=== PATIENT | male | born 1955 | race Caucasian/White ===

== ENCOUNTER 2023-10-21 03:03 | Observation (INO) | payer OTHER ==
[2023-10-21 03:39] LABS: Absolute Eosinophils 0.2 K/uL (0-0.5); Absolute Monocytes 0.7 K/uL (0.1-1.3); Absolute Neutrophil 5.3 K/uL (1.8-8.0); Basophils % 0.6 % (0-1.3); Eosinophils % 2.3 % (0-4.4); Hematocrit 44.3 % (39.6-49.0); Lymphocytes % 24.6 % (15.3-44.8); MCHC 33.8 g/dL (32.0-36.0); MCV 91.9 fL (80-100); MPV 9.2 fL (7.6-11.3); Monocytes % 8.5 % (3.3-12.3); Nucleated Red Blood Cells % 0.1 % (0-0); Platelets 208 thou/uL (152-406); RBC Red Blood Cell Count 4.82 M/uL (4.33-5.43)
[2023-10-21 03:45] LABS: PTT, Activated Partial Thromb 27.4 SECONDS (24.3-36.9); Protime INR 1.09
[2023-10-21 03:55] LABS: Albumin 3.5 g/dL (3.4-5.0); Anion Gap 9.1 mEq/L (5.0-15.0); Bilirubin Direct 0.2 mg/dL (0-0.2); Bilirubin Indirect, Calculated 0.5 mg/dL (0.2-0.8); Bilirubin Total 0.7 mg/dL (0.2-1.0); Globulin 3.4 g/dL (2.3-3.5); Magnesium 2.3 mg/dL (1.6-2.4); Potassium 4.1 mEq/L (3.5-5.1); Protein, Total 6.9 g/dL (6.4-8.2); Troponin High Sensitivity 12.7 pg/mL (<58.9)
[2023-10-21] MEDS ORDERED: NA CHLORIDE 0.9% 1,000 ML ONE ×2 (04:00→16:18)
[2023-10-21] MEDS ORDERED: ALBUMIN HUMAN 25% 100 ML IV ONE (04:53)
--- NOTE | 2023-10-21 06:53 | EDPHYS ---
Physician Documentation [facility] Name: Joseph Mak Age: 67 yrs Sex: Male : 1955 Arrival Date: 10/21/2023 Time: 03:03 Bed 13 Private MD: ED Physician Oneal Ambrose HPI: 10/20 05:58 This 67 yrs old Male presents to ER via Wheelchair with complaints of Syncope.sp4 06:52 Six 7-year-old male with past medical history of TN and 5 stents presents with acute sp4 syncopal episode. Hospital. Patient was visiting his mother and has apparently passed out while visiting his mother. Patient has generalized weakness.. Historical: - Allergies: 03:28 No Known Allergies; ss - PMHx: 03:28 Myocardial infarction; ss - PSHx: 03:28 cardiac stents x5; ss - Immunization history:: Client reports receiving the 2nd dose of the Covid vaccine. - Infectious Disease History:: Denies. - Social history:: Smoking status: Patient denies any tobacco usage or history of. - Family history:: not pertinent. ROS: 06:52 Constitutional: Negative for fever, chills, and weight loss, positive syncopal episode sp4 and generalized weakness 06:52 All other systems are negative, Exam: 05:57 ECG was reviewed by the Attending Physician. EKG time 0306, electronic ventricular sp4 pacemaker, rate 62, left axis deviation An electrocardiogram was deferred on this patient 06:52 Abdomen/GI: Exam negative for acute changes, sp4 06:52 Constitutional: This is a well developed, well nourished patient who is awake, alert, and in no acute distress. Pale appearing but nontoxic Head/Face: Normocephalic, atraumatic. Eyes: Pupils equal round and reactive to light, extra-ocular motions intact. Lids and lashes normal. Conjunctiva and sclera are not injected. Cornea within normal limits. Periorbital areas with no swelling, redness, or edema. ENT: Nares patent. No nasal discharge, no septal abnormalities noted. Tympanic membranes are normal and external auditory canals are clear. Oropharynx with no redness, swelling, or masses, exudates, or evidence of obstruction, uvula midline. Mucous membranes moist. Neck: Trachea midline, no thyromegaly or masses palpated, and no cervical lymphadenopathy. Supple, full range of motion without nuchal rigidity, or vertebral point tenderness. Chest/axilla: Normal chest wall appearance and motion. Nontender with no deformity. No lesions are appreciated. Cardiovascular: Regular rate and rhythm with a normal S1 and S2. No gallops, murmurs, or rubs. Normal PMI, no JVD. No pulse deficits. Respiratory: Lungs have equal breath sounds bilaterally, clear to auscultation and percussion. No rales, rhonchi or wheezes noted. No increased work of breathing, no retractions or nasal flaring. Abdomen/GI: Soft, with normal bowel sounds. No distension or tympany. No guarding or rebound. No evidence of tenderness throughout. Back: No spinal tenderness. No costovertebral tenderness. Skin: Warm, dry with normal turgor. Normal color with no rashes, no lesions, and no evidence of cellulitis. MS/ Extremity: Pulses equal, no cyanosis. Neurovascular intact. Full, normal range of motion. Neuro: Awake and alert, GCS 15, oriented to person, place, time, and situation. Cranial nerves II-XII grossly intact. Motor strength 5/5 in all extremities. Sensory grossly intact. Psych: Awake, alert, with orientation to person, place and time. Behavior, mood, and affect are within normal limits Vital Signs: 03:10 BP 77 / 53; Pulse 60; Resp 16; Temp 97.6(O); Pulse Ox 98% on R/A; Weight 77.11 kg; ss Height 5 ft. 5 in. ; Pain 0/10; 03:29 BP 101 / 67; ss 04:15 BP 100 / 61; Pulse 60; Resp 16; Pulse Ox 96% ; pc2 05:00 BP 111 / 71; Pulse 61; Resp 16; Pulse Ox 100% on R/A; pc2 06:41 BP 111 / 69; Pulse 71; Resp 16; Pulse Ox 98% on R/A; pc2 06:59 BP 102 / 57 Supine; Pulse 70 LA; pc2 07:00 BP 102 / 61 Sitting; Pulse 72 LA; pc2 07:00 BP 89 / 69 Standing; Pulse 78 LA; pc2 08:05 BP 108 / 74; Pulse 75; Resp 17; Pulse Ox 99% on R/A; rs5 03:10 Body Mass Index 28.29 (77.11 kg, 165.1 cm) ss 03:10 Pain Scale: Adult ss NIH Stroke Scale Scores: 06:52 NIHSS Score: 0 sp4 Mine Coma Score: 06:52 Eye Response: spontaneous(4). Motor Response: obeys commands(6). Verbal Response: sp4 oriented(5). Total: 15. MDM: 03:30 Patient medically screened. sp4 06:54 Differential Diagnosis: cardiac arrhythmia, drug effect, emotional response, idiopathic sp4 syncope, seizure. Data reviewed: vital signs, nurses notes, lab test result(s), EKG, radiologic studies, CT scan, plain films. Consideration of Admission/Observation Escalation of care including admission/observation considered. Management of patient was discussed with the following: Hospitalist: Admit team . 07:26 ED course: CT - EXAM DESCRIPTION: CT head without contrast. CLINICAL HISTORY: SYNCOPE . sp4 COMPARISON: None Available. TECHNIQUE: Contiguous axial sections are obtained as per protocol. Sagittal and coronal reformations are submitted Automatic exposure control (AEC), mA and/or kV adjustment by patient size, and/or iterative reconstructive technique was used, per departmental dose optimization program, during the performance of the CT examination. FINDINGS: Ventricles, sulci and cisterns appear normal. Normal ingram-white matter differentiation is noted. No evidence of intra or extra-axial hemorrhage, hematoma, mass, mass effect or midline shift is noted. The posterior fossa structures appear normal. The bony calvarium appears intact. The soft tissues of the scalp appear unremarkable. Normal appearance of the orbits are noted. The paranasal sinuses and mastoids appear normal. IMPRESSION: Unremarkable non contrast enhanced CT examination of brain. If clinically ischemic CVA is suspected, MRI brain with diffusion-weighted images should be considered.. ED course: : 1955. Technique: Portable AP semierect chest x-ray. Comparison: None. Clinical history: syncope. Heart size: Normal. No vascular congestion. Left transvenous pacemaker. Lungs: No acute consolidation. Pleura: No pleural effusion. No pneumothorax. Mediastinum and akshat: Unremarkable. Musculoskeletal: Unremarkable. Support tubings: None. Impression: 1. No active disease in the chest.. 10/20 03:28 Order name: Basic Metabolic Panel; Complete Time: 06:49 sp4 10/20 03:28 Order name: CBC with Diff; Complete Time: 06:49 sp4 10/20 03:28 Order name: Hepatic Function; Complete Time: 06:49 sp4 10/20 03:28 Order name: Magnesium; Complete Time: 06:49 sp4 10/20 03:28 Order name: Protime (+inr); Complete Time: 06:49 sp4 10/20 03:28 Order name: Ptt, Activated; Complete Time: 06:49 sp4 10/20 03:28 Order name: Troponin High Sensitivity; Complete Time: 06:49 sp4 10/20 03:28 Order name: Urinalysis w/ reflexes sp4 10/20 03:29 Order name: BNP; Complete Time: 06:49 sp4 10/20 03:29 Order name: Lactate w/ 2H reflex if indic.; Complete Time: 06:49 sp4 10/20 03:30 Order name: Blood Culture Adult (2) sp4 10/20 03:31 Order name: Type And Screen sp4 10/20 07:32 Order name: Troponin High Sensitivity EDMS 10/20 07:32 Order name: Troponin High Sensitivity EDMS 10/20 07:32 Order name: Troponin High Sensitivity EDMS 10/20 09:36 Order name: ABO/RH no charge EDMS 10/20 16:39 Order name: T4 Free EDMS 10/20 16:39 Order name: Thyroid Stimulating Hormone EDMS 10/20 03:28 Order name: CT Head Brain wo Cont sp4 10/20 03:28 Order name: Chest Single View XRAY sp4 10/20 07:32 Order name: Echo with Doppler EDMS 10/20 03:28 Order name: EKG; Complete Time: 03:29 sp4 10/20 03:28 Order name: Cardiac monitoring; Complete Time: 03:42 sp4 10/20 03:28 Order name: EKG - Nurse/Tech; Complete Time: 03:42 sp4 10/20 03:28 Order name: IV Saline Lock; Complete Time: 03:42 sp4 10/20 03:28 Order name: Labs collected and sent; Complete Time: 03:42 sp4 10/20 03:28 Order name: NPO; Complete Time: 03:42 sp4 10/20 03:28 Order name: O2 Per Protocol; Complete Time: 03:42 sp4 10/20 03:28 Order name: O2 Sat Monitoring; Complete Time: 03:42 sp4 10/20 03:28 Order name: Orthostatics; Complete Time: 06:58 sp4 10/20 04:23 Order name: Misc. Order: Recollect\T\ReBand - TS Hemolyzed; Complete Time: 04:46 ty EC:57 Rate is 62 beats/min. Rhythm is regular, Paced. Interpreted by me. Reviewed by me. sp4 Administered Medications: 04:07 Drug: NS 0.9% IV 1000 ml IV at 1 bolus Per protocol; 1000 mL bolus Route: IV; Rate: 1 ss bolus; Site: right wrist; 05:30 Follow up: Response: No adverse reaction; IV Status: Completed infusion; IV Intake: pc2 1000ml 04:55 Drug: Albumin IVPB 25 grams 100 ml IVPB once; (Note: Albumin 25% concentration) Volume: pc2 100 ml; Route: IVPB; Site: right wrist; 05:30 Follow up: Response: No adverse reaction pc2 05:55 Follow up: IV Status: Completed infusion; IV Intake: 100ml pc2 Point of Care Testing: Blood Glucose: 03:58 Blood Glucose: 138 mg/dL; pc2 Ranges: Critical Glucose Levels:Adult <50 mg/dl or >400 mg/dl <40 mg/dl or >180 mg/dl Disposition Summary: 10/21/23 06:52 Hospitalization Ordered Notes: Hospitalization Status: Inpatient Admission sp4 Provider: Daniel Love sp4 Condition: Stable sp4 Problem: new sp4 Symptoms: have improved sp4 Bed/Room Type: Standard sp4 Location: Telemetry/MedSurg (Inpatient)(10/21/23 20:23) Room Assignment: 222(10/21/23 20:23) Diagnosis - Syncope and collapse, hypotensive episode sp4 Forms: - Medication Reconciliation Form sp4 - SBAR form sp4 - Leadership Thank You Letter sp4 NIH Stroke Scale - NIH Stroke Score Date: 10/21/2023 Time: 06:52 Total Score = 0 10. Dysarthria (speech clarity - read or repeat words) - 0(Normal) 11. Extinction and Inattention (visual/tactile/auditory/spatial/personal) - 0(No abnormality) 1a. Level of Consciousness (LOC) - 0(Alert) 1b. Level of Consciousness (LOC) (Month \T\ Age) - 0(Both) 1c. LOC Commands (Open \T\ Closes Eyes/Hot Mix Operator) - 0(Both) 2. Best Gaze (Lateral Gaze Paresis) - 0(Normal) 3. Visual Field Loss - 0(No visual loss) 4. Facial Palsy - 0(Normal) 5a. Left Arm: Motor (10-second hold) - 0(No drift) 5b. Right Arm: Motor (10-second hold) - 0(No drift) 6a. Left Leg: Motor (5-second hold - always test supine) - 0(No drift) 6b. Right Leg: Motor (5-second hold - always test supine) - 0(No drift) 7. Limb Ataxia (finger/nose \T\ heel/brody - test with eyes open) - 0(Absent) 8. Sensory Loss (pinprick arms/legs/face) - 0(Normal) 9. Best Language: Aphasia (description/naming/reading) - 0(No aphasia) Initials: sp4 Signatures: Dispatcher [employer] EDMS Radha Bay Kimberly, RN RN Yanni Nova RN RN Oneal He MD MD sp4 Evan Hedrick Pam, RN RN pc2 Corrections: (The following items were deleted from the chart) 03:30 03:29 BASIC METABOLIC PANEL+C.LAB.BRZ ordered. EDMS EDMS 03:30 03:29 CBC+H.LAB.BRZ ordered. EDMS EDMS 03:30 03:29 HEPATIC FUNCTION+C.LAB.BRZ ordered. EDMS EDMS 03:30 03:29 MAGNESIUM+C.LAB.BRZ ordered. EDMS EDMS 03:30 03:29 PROTIME (+INR)+COAG.LAB.BRZ ordered. EDMS EDMS 03:30 03:29 PTT, ACTIVATED+COAG.LAB.BRZ ordered. EDMS EDMS 03:30 03:29 Troponin High Sensitivity+C.LAB.BRZ ordered. EDMS EDMS 03:30 03:29 Urinalysis+U.LAB.BRZ ordered. EDMS EDMS 08:45 06:52 Telemetry/MedSurg (observation) sp4 bd 08:45 06:52 sp4 bd 20:23 08:45 [facility] ER HOLD bd kl 20:23 08:45 ERHOLD- bd kl
--- NOTE | 2023-10-21 06:53 | ER ---
Nurse's Notes [facility] Name: Joseph Mak Age: 67 yrs Sex: Male : 1955 Arrival Date: 10/21/2023 Time: 03:03 Bed 13 Private MD: Diagnosis: Syncope and collapse, hypotensive episode Presentation: 10/20 03:10 Chief complaint: Patient states: syncopal episode while visiting family member. Denies ss feeling ill. Reports feeling fatigued suddenly. Coronavirus screen: Client denies travel out of the [place] in the last 14 days. Ebola Screen: Patient denies exposure to infectious person. Patient denies travel to an Ebola-affected area in the 21 days before illness onset. Initial Sepsis Screen: Does the patient meet any 2 criteria? No. Patient's initial sepsis screen is negative. Does the patient have a suspected source of infection? No. Patient's initial sepsis screen is negative. Risk Assessment: Do you want to hurt yourself or someone else? Patient reports no desire to harm self or others. Onset of symptoms was October 21, 2023. 03:10 Method Of Arrival: Wheelchair ss 03:10 Acuity: TISH 2 ss Triage Assessment: 03:10 General: Appears in no apparent distress. Behavior is calm, cooperative, quiet. Pain: ss Denies pain. EENT: Oral mucosa is moist. Neuro: Level of Consciousness is awake, obeys commands, Speech is normal. Respiratory: Airway is patent Respiratory effort is even, unlabored, Respiratory pattern is regular, symmetrical. GI: Abdomen is non-distended, Patient currently denies abdominal pain, diarrhea, nausea, vomiting. : No signs and/or symptoms were reported regarding the genitourinary system. Derm: Skin is pale, Skin temperature is cool. Historical: - Allergies: 03:28 No Known Allergies; ss - PMHx: 03:28 Myocardial infarction; ss - PSHx: 03:28 cardiac stents x5; ss - Immunization history:: Client reports receiving the 2nd dose of the Covid vaccine. - Infectious Disease History:: Denies. - Social history:: Smoking status: Patient denies any tobacco usage or history of. - Family history:: not pertinent. Screenin:[facility] ED Fall Risk Assessment (Adult) History of falling in the last 3 months, pc2 including since admission No falls in past 3 months (0 pts) Confusion or Disorientation No (0 pts) Intoxicated or Sedated No (0 pts) Impaired Gait No (0 pts) Mobility Assist Device Used No (0 pt) Altered Elimination Score/Fall Risk Level 0 - 2 = Low Risk Oriented to surroundings, Hourly rounding (assess needs \T\ fall precautionary measures) done. Abuse screen: Denies threats or abuse. Denies injuries from another. Nutritional screening: No deficits noted. Tuberculosis screening: No symptoms or risk factors identified. Assessment: 03:55 General: Appears in no apparent distress. comfortable, Behavior is calm, cooperative, pc2 appropriate for age. Pain: Denies pain. Neuro: Level of Consciousness is awake, alert, obeys commands, Oriented to person, place, time, situation, Appropriate for age Speech is normal, Facial symmetry appears normal, Reports a syncopal episode. Cardiovascular: Capillary refill < 3 seconds Patient's skin is warm and dry. Rhythm is ventricular pacer. Respiratory: Airway is patent Trachea midline Respiratory effort is even, unlabored, Respiratory pattern is regular, symmetrical, Breath sounds are clear bilaterally. GI: No signs and/or symptoms were reported involving the gastrointestinal system. : No signs and/or symptoms were reported regarding the genitourinary system. EENT: No signs and/or symptoms were reported regarding the EENT system. Musculoskeletal: No signs and/or symptoms reported regarding the musculoskeletal system. 04:14 Reassessment: Pt to CT now VIA stretcher. ss 05:32 Reassessment: Patient and/or family updated on plan of care and expected duration. Pain pc2 level reassessed. Patient is alert, oriented x 3, equal unlabored respirations, skin warm/dry/pink. 06:45 Reassessment: Patient and/or family updated on plan of care and expected duration. Pain pc2 level reassessed. Orthostatics completed. Patient denies pain at this time. Patient states feeling better. 07:01 Reassessment: Patient and/or family updated on plan of care and expected duration. Pain rs5 level reassessed. Patient is alert, oriented x 3, equal unlabored respirations, skin warm/dry/pink. Neuro: Denies weakness dizziness. 07:01 Pain: Denies pain. rs5 08:05 Reassessment: No changes from previously documented assessment. rs5 Vital Signs: 03:10 BP 77 / 53; Pulse 60; Resp 16; Temp 97.6(O); Pulse Ox 98% on R/A; Weight 77.11 kg; ss Height 5 ft. 5 in. ; Pain 0/10; 03:29 BP 101 / 67; ss 04:15 BP 100 / 61; Pulse 60; Resp 16; Pulse Ox 96% ; pc2 05:00 BP 111 / 71; Pulse 61; Resp 16; Pulse Ox 100% on R/A; pc2 06:41 BP 111 / 69; Pulse 71; Resp 16; Pulse Ox 98% on R/A; pc2 06:59 BP 102 / 57 Supine; Pulse 70 LA; pc2 07:00 BP 102 / 61 Sitting; Pulse 72 LA; pc2 07:00 BP 89 / 69 Standing; Pulse 78 LA; pc2 08:05 BP 108 / 74; Pulse 75; Resp 17; Pulse Ox 99% on R/A; rs5 03:10 Body Mass Index 28.29 (77.11 kg, 165.1 cm) ss 03:10 Pain Scale: Adult ss Rangely Coma Score: 06:52 Eye Response: spontaneous(4). Motor Response: obeys commands(6). Verbal Response: sp4 oriented(5). Total: 15. NIH Stroke Scale Scores: 06:52 NIHSS Score: 0 sp4 ED Course: 03:19 Patient arrived in ED. kl 03:21 Inserted saline lock: 22 gauge in right wrist, using aseptic technique. Blood collected.ss 03:28 Oneal Ambrose MD is Attending Physician. sp4 03:28 Triage completed. ss 03:28 Arm band placed on right wrist. ss 03:35 Client placed on continuous cardiac and pulse oximetry monitoring. NIBP monitoring pc2 applied. patient monitor on. Pulse ox on. NIBP on. 04:00 Type And Screen Sent. ss 04:00 Blood Culture Adult (2) Sent. ss 04:00 Lactate w/ 2H reflex if indic. Sent. ss 04:01 Chest Single View XRAY In Process Unspecified. EDMS 04:15 CT Head Brain wo Cont In Process Unspecified. EDMS 04:45 Mariel yanez, RN is Primary Nurse. pc2 04:55 Patient has correct armband on for positive identification. Bed in low position. Call pc2 light in reach. Side rails up X2. Provided Education on: POC and timeframe. 06:52 Love, Daniel, MD is Hospitalizing Provider. sp4 08:00 No provider procedures requiring assistance completed. rs5 08:00 Patient admitted, IV remains in place. rs5 08:22 Prince Dumont, JESSY is Primary Nurse. rs5 Administered Medications: 04:07 Drug: NS 0.9% IV 1000 ml IV at 1 bolus Per protocol; 1000 mL bolus Route: IV; Rate: 1 ss bolus; Site: right wrist; 05:30 Follow up: Response: No adverse reaction; IV Status: Completed infusion; IV Intake: pc2 1000ml 04:55 Drug: Albumin IVPB 25 grams 100 ml IVPB once; (Note: Albumin 25% concentration) Volume: pc2 100 ml; Route: IVPB; Site: right wrist; 05:30 Follow up: Response: No adverse reaction pc2 05:55 Follow up: IV Status: Completed infusion; IV Intake: 100ml pc2 Medication: 04:54 VIS not applicable for this client. pc2 Point of Care Testing: Blood Glucose: 03:58 Blood Glucose: 138 mg/dL; pc2 Ranges: Intake: 05:30 IV: 1000ml; Total: 1000ml. pc2 05:55 IV: 100ml; Total: 1100ml. pc2 Outcome: 06:52 Decision to Hospitalize by Provider. sp4 08:00 Admitted to ER Hold. [facility] rs5 08:00 Condition: stable 08:00 Instructed on the need for admit, Demonstrated understanding of instructions, 22:34 Patient left the ED. pc2 NIH Stroke Scale - NIH Stroke Score Date: 10/21/2023 Time: 06:52 Total Score = 0 10. Dysarthria (speech clarity - read or repeat words) - 0(Normal) 11. Extinction and Inattention (visual/tactile/auditory/spatial/personal) - 0(No abnormality) 1a. Level of Consciousness (LOC) - 0(Alert) 1b. Level of Consciousness (LOC) (Month \T\ Age) - 0(Both) 1c. LOC Commands (Open \T\ Closes Eyes/Net Programmer Analyst) - 0(Both) 2. Best Gaze (Lateral Gaze Paresis) - 0(Normal) 3. Visual Field Loss - 0(No visual loss) 4. Facial Palsy - 0(Normal) 5a. Left Arm: Motor (10-second hold) - 0(No drift) 5b. Right Arm: Motor (10-second hold) - 0(No drift) 6a. Left Leg: Motor (5-second hold - always test supine) - 0(No drift) 6b. Right Leg: Motor (5-second hold - always test supine) - 0(No drift) 7. Limb Ataxia (finger/nose \T\ heel/brody - test with eyes open) - 0(Absent) 8. Sensory Loss (pinprick arms/legs/face) - 0(Normal) 9. Best Language: Aphasia (description/naming/reading) - 0(No aphasia) Initials: sp4 Signatures: Dispatcher [employer] EDZena Fishman RN RN kl Yanni Farley RN RN ss Prince Dumont RN RN rs5 Oneal Ambrose MD MD sp4 Mariel yanez RN RN pc2 Corrections: (The following items were deleted from the chart) 05:34 04:55 Albumin IVPB 25 grams 100 ml IVPB in right antecubital pc2 pc2 05:34 04:55 Albumin IVPB 25 grams 100 ml IVPB in left wrist pc2 pc2
--- NOTE | 2023-10-21 07:41 | P.HP ---
Certification for Inpatient Patient admitted to: Observation With expected LOS: <2 Midnights Patient will require the following post-hospital care: None Practitioner: I am a practitioner with admitting privileges, knowledge of patient current condition, hospital course, and medical plan of care. Services: Services provided to patient in accordance with Admission requirements found in Title 42 Section 412.3 of the Code of Federal Regulations Patient History Date of Service: 10/21/23 Reason for admission: Syncope History of Present Illness: 67-year-old male history of CAD, systolic congestive heart failure, hypothyroidism was in the ER visiting his mother when he had a syncopal episode. First he complained of a bit of lightheadedness with standing/ambulating the hallway, a couple minutes later while in the seated position he had a syncopal episode with loss of consciousness lasted for about 1 minute. Prior to the episode of syncope he denies any chest pressure/tightness, palpitations, headache or diaphoresis. He denies similar episodes in the past, he reports he has a known EF of around 30% after an MA he had about 3 years ago, has 5 stents last heart cath 2 years ago. He also has a pacemaker/defibrillator in place, does take spironolactone. Blood pressure was low after he was transported to another ER room with initial blood pressure around 77 systolic, orthostatics borderline positive with drop in blood pressure. Blood pressure has responded to IV fluids, symptoms have improved, ED prior wishes to admit under observation for syncopal episode. Patient was evaluated in the emergency department his labs are significant for creatinine 1.48 BNP 714 initial high sensitive troponin 12.7 CT head negative for acute findings. - Past Medical/Surgical History -: CAD -: Systolic CHF -: Hypothyroidism -: Hyperlipidemia -: Pacemaker/defibrillator insertion -: Coronary stents x 5 Psychosocial/ Personal History: Retired, lives at home with his - Family History Brother -: Heart disease - Social History Smoking Status: Never smoker Alcohol use: No CD- Drugs: No Caffeine use: Yes Place of Residence: Home Review of Systems 10-point ROS is otherwise unremarkable Cardiovascular: Light Headedness, Other (Syncope) Physical Examination - Physical Exam General: Alert, In no apparent distress, Oriented x3 HEENT: Atraumatic, PERRLA, Mucous membr. moist/pink Neck: Supple, 2+ carotid pulse no bruit, No LAD Respiratory: Clear to auscultation bilaterally, Normal air movement Cardiovascular: Regular rate/rhythm, Normal S1 S2 Gastrointestinal: Normal bowel sounds, No tenderness Musculoskeletal: No tenderness Integumentary: No rashes Neurological: Normal speech, Normal strength at 5/5 x4 extr, Normal tone, Normal affect - Studies Laboratory Data (last 24 hrs) 10/21/23 10/21/23 10/21/23 03:08 03:08 03:08 WBC 8.20 Hgb 15.0 Hct 44.3 Plt Count 208 PT 12.0 INR 1.09 APTT 27.4 Sodium 135 L Potassium 4.1 BUN 23 H Creatinine 1.48 H Glucose 138 H Magnesium 2.3 Total Bilirubin 0.7 AST 26 ALT 33 Alkaline Phosphatase 99 Assessment and Plan - Plan Assessment: Syncope Orthostatic hypotension Renal insufficiency Chronic systolic congestive heart failure with AICD in place History of CAD with previous stent placement Hypothyroidism Hyperlipidemia Plan: Syncope Blood pressure low on arrival, responding to IV fluids Syncope occurred in seated position Initial hesitancy troponin within normal limits, will trend Monitor on telemetry, trend troponins Will attempt to interrogate pacemaker/defibrillator Cardiology consultation and echocardiogram ordered Denies lower extremity edema, shortness of breath, not hypoxic doubt PE Orthostatic hypotension Renal insufficiency Chronic systolic congestive heart failure with AICD in place Does take spironolactone, Entresto at home Blood pressure in the low side, creatinine 1.48unknown baseline Continue gentle IV fluids, monitor volume status closely Repeat chemistry in the morning History of CAD with previous stent placement Continue aspirin, Brilinta Hold oral antihypertensives this morning resume when blood pressure more persistently elevated Hypothyroidism Hyperlipidemia Continue home medication when verified DVT PPX: Lovenox Code status: Full Discharge Plan: Home Plan to discharge in: 24 Hours - Advance Directives Does patient have a Living Will: No Does patient have a Durable POA for Healthcare: No - Code Status/Comfort Care Code Status Assessed: Yes (Full code) Critical Care: No Time Spent Managing Pts Care (In Minutes): 70
[2023-10-21 07:51] LABS: Specific Gravity 1.016 (1.005-1.030); Sqamous Epithelial <5 /HPF (None Seen); Urine Bacteria None Seen /HPF (<20); Urine Bilirubin NEGATIVE (Negative); Urine Blood Negative (Negative); Urine Clarity Turbid (Clear); Urine Color Yellow (Yellow); Urine Culture Reflex Order NOT NEEDED; Urine Glucose NEGATIVE (Negative); Urine Ketones TRACE (Negative); Urine Microscopic Reflex YN ORDER UMIC; Urine Mucus Slight /HPF (None Seen); Urine Nitrite NEGATIVE (Negative); Urine Protein NEGATIVE (Negative); Urine RBC <5 /HPF (None Seen); Urine Urobilinogen Normal (Normal); Urine WBC <5 /HPF (<5)
--- NOTE | 2023-10-21 09:03 | RAD REPORT ---
EXAM DESCRIPTION: CT - Head Brain Wo Cont - 10/21/2023 7:26 am CLINICAL HISTORY: SYNCOPE . COMPARISON: None Available. TECHNIQUE: Contiguous axial sections are obtained as per protocol. Sagittal and coronal reformations are submitted Automatic exposure control (AEC), mA and/or kV adjustment by patient size, and/or iterative reconstru ctive technique was used, per departmental dose optimization program, during the performance of the C T examination. FINDINGS: Ventricles, sulci and cisterns appear normal. Normal ingram-white matter differentiation i s noted. No evidence of intra or extra-axial hemorrhage, hematoma, mass, mass effect or midline shift is noted. The posterior fossa structures appear normal. The bony calvarium appears intact. The soft tissues of the scalp appear unremarkable. Normal appearance of the orbits are noted. The paranasal sinuses and mastoids appear normal. IMPRESSION: Unremarkable non contrast enhanced CT examination of brain. If clinically ischemic CVA is suspected, MRI brain with diffusion-weighted images should be considere d. Electronically signed by: Maggie Henderson MD 10/21/2023 07:21 AM CDT Due to temporary technical issues with the PACS/Fluency reporting system, reports are being signed by the in house radiologists without review as a courtesy to insure prompt reporting. The interpreting radiologist is fully responsible for the content of the report.
--- NOTE | 2023-10-21 09:07 | RAD REPORT ---
EXAM DESCRIPTION: RAD - Chest Single View - 10/21/2023 3:59 am TECHNIQUE: Portable AP semierect chest x-ray. Comparison: None. CLINICAL HISTORY: Syncope. Heart size: Normal. No vascular congestion. Left transvenous pacemaker. Lungs: No acute consolidation. Pleura: No pleural effusion. No pneumothorax. Mediastinum and akshat: Unremarkable. Musculoskeletal: Unremarkable. Support tubings: None. IMPRESSION: 1. No active disease in the chest. Electronically signed by: Odilon Street MD 10/21/2023 07:10 AM CDT Due to temporary technical issues with the PACS/Fluency reporting system, reports are being signed by the in house radiologists without review as a courtesy to insure prompt reporting. The interpreting radiologist is fully responsible for the content of the report.
[2023-10-21 09:40] VITALS: BMI 28.1
[2023-10-21] MEDS: PNEUMOCOCCAL VACCINE 0.5 ML IMVAC ONE (12:00)
--- NOTE | 2023-10-21 14:13 | EKG ---
Test Date: 2023-10-21 Test Time: 03:06:48 Heel Caser: TONA MEASUREMENT RESULTS: Intervals: Rate: 62 SD: 126 QRSD: 132 QT: 428 QTc: 434 Corona: P: 25 SD: 126 QRS: -49 T: 144 INTERPRETIVE STATEMENTS: Sinus rhythm with premature supraventricular complexes Left axis deviation Nonspecific intraventricular block Septal infarct, age undetermined T wave abnormality, consider anterolateral ischemia Abnormal ECG No previous ECG available for comparison Electronically Signed On 10-21-23 14:10:39 CDT by Levi Duffy
[2023-10-21] MEDS: ASPIRIN EC 81 MG TAB PO SCH (15:18)
[2023-10-21] MEDS: TICAGRELOR 90 MG TABLET PO SCH (15:18)
[2023-10-21] MEDS: ENOXAPARIN 40 MG/0.4 ML SQ SCH (15:18)
[2023-10-21] MEDS: NA CHLORIDE 0.9% 1,000 ML IV SCH (15:18)
[2023-10-21] MEDS ORDERED: TICAGRELOR 90 MG TABLET PO ONE ×2 (16:18→21:21)
[2023-10-21] MEDS ORDERED: ASPIRIN EC 81 MG TAB PO ONE (16:18)
[2023-10-21] MEDS ORDERED: ENOXAPARIN 40 MG/0.4 ML SQ ONE (16:18)
[2023-10-21 16:38] LABS: Thyroid Stimulating Hormone 2.94 uIU/mL (0.358-3.740)
--- NOTE | 2023-10-21 19:52 | CON ---
Date of Consultation: 10/21/2023 Reason For Consultation: Syncope. History Of Present Illness: A 67-year-old male, history of coronary artery disease, congestive heart failure, ejection fraction is below 30%, has an ICD in place, history of hypothyroidism, and hyperli pidemia, he was with his in the hallway, he became very dizzy after he was standing his head latonya n and has lost consciousness while he was sitting for about 1 minute. No device shocks on him and fe els well now. He has history of coronary artery disease, status post stents in the past, but denies having any chest pain or shortness of breath. Past Medical History: Coronary artery disease, systolic heart failure, hypothyroidism, dyslipidemia. Past Surgical History: Cardiac stent placement and defibrillator implantation. Medications: Refer reconciliation sheet for detailed list. Allergies: NO KNOWN DRUG ALLERGIES. Family History: No premature coronary artery disease or cancer. Social History: Does not smoke or drink. Does not use any drugs. Review of Systems: All systems reviewed, they are negative except as mentioned in HPI. Physical Examination: Vital Signs: Showed blood pressure is 113/54, breathing at 17, heart rate is 99, temperature is 97.8 . General: Pleasant, middle-aged male, in no apparent distress. Head and Neck: Pupils are equal, reactive to light. Intact eye movements. No JVD. No cervical lym phadenopathy. Neck is supple. Thyroid is not enlarged. Lungs: Clear to auscultation bilaterally. No rhonchi, wheezing, or crackles. No accessory muscle u se. Heart: Regular rate and rhythm. No extra sounds. Abdomen: Soft, nontender. Bowel sounds positive. No organomegaly. No masses or hernia. No rigidi ty or rebound. Extremities: No edema, clubbing, cyanosis. Intact pulses. Skin: No rash. No nodule. Neurologic: Alert, awake, oriented x3. No acute focal deficits appreciated. Investigations: BUN is 23, creatinine 1.48, and his troponin x2 are negative. Hemoglobin is 15. Assessment/recommendation: 1.Syncope. His blood pressure was 77/53 upon arrival, so this is hypotension, probably slight dehyd ration. Recommend to monitor overnight. May be gentle hydration and reassess tomorrow and also his ICD device is to be interrogated to see if there is any cardiac arrhythmia involved, to keep him on t elemetry monitor and treat cardiac enzymes and obtain an echocardiogram as well. 2.Orthostatic hypotension due to dehydration, responding well to fluids. 3.Chronic systolic heart failure. Ejection fraction should be around or below 30%. Update echo and to get the ICD. 4.Dyslipidemia. Continue statin. 5.Coronary artery disease. No chest pain. 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 SR/MODL Voice ID: [id number] Report ID: [id number]
[2023-10-21 22:59] VITALS: O2SAT 99
[2023-10-22 07:46] LABS: Absolute Eosinophils 0.2 K/uL (0-0.5); Absolute Monocytes 0.6 K/uL (0.1-1.3); Absolute Neutrophil 4.5 K/uL (1.8-8.0); Basophils % 0.6 % (0-1.3); Eosinophils % 2.2 % (0-4.4); Hemoglobin 14.4 g/dL (13.6-17.9); Lymphocytes % 27.2 % (15.3-44.8); MCH 30.6 pg (27.0-35.0); MCHC 32.8 g/dL (32.0-36.0); MCV 93.3 fL (80-100); MPV 9.1 fL (7.6-11.3); Monocytes % 7.7 % (3.3-12.3); Neutrophils % 62.3 % (41.7-73.7); Platelets 162 thou/uL (152-406); RBC Red Blood Cell Count 4.72 M/uL (4.33-5.43); Red Cell Distribution Width 15.2 % (12.1-15.2)
[2023-10-22 08:19] LABS: Anion Gap 5.4 mEq/L (5.0-15.0); Potassium 4.4 mEq/L (3.5-5.1)
[2023-10-22 11:37] VITALS: BP 133/72; TEMP 97.1
--- NOTE | 2023-10-22 13:28 | P.DS ---
Admission Date: 10/21/23 Discharge Date: 10/22/23 Disposition: ROUTINE DISCHARGE Discharge Condition: GOOD Reason for Admission: Syncope Consultations: Cardiology-Dr. Duffy Brief History of Present Illness: 67-year-old male history of CAD, systolic congestive heart failure, hypothyroidism was in the ER visiting his mother when he had a syncopal episode. First he complained of a bit of lightheadedness with standing/ambulating the hallway, a couple minutes later while in the seated position he had a syncopal episode with loss of consciousness lasted for about 1 minute. Prior to the episode of syncope he denies any chest pressure/tightness, palpitations, headache or diaphoresis. He denies similar episodes in the past, he reports he has a known EF of around 30% after an [place] he had about 3 years ago, has 5 stents last heart cath 2 years ago. He also has a pacemaker/defibrillator in place, does take spironolactone. Blood pressure was low after he was transported to another ER room with initial blood pressure around 77 systolic, orthostatics borderline positive with drop in blood pressure. Blood pressure has responded to IV fluids, symptoms have improved, ED prior wishes to admit under observation for syncopal episode. Patient was evaluated in the emergency department his labs are significant for creatinine 1.48 BNP 714 initial high sensitive troponin 12.7 CT head negative for acute findings. Hospital Course: Assessment: Syncope Orthostatic hypotension Renal insufficiency Chronic systolic congestive heart failure with AICD in place History of CAD with previous stent placement Hypothyroidism Hyperlipidemia Patient was admitted for a syncopal episode. At the time of the episode he was found to be hypotensive, also had a slight ROB on admission. He was given IV fluids overnight his kidney function improved as well as his blood pressure, he has been ambulatory without any further episodes of lightheadedness/near syncope. He denies any chest pain, palpitations, shortness of breath. He was monitored on telemetry and troponins were trended which were negative, no significant arrhythmia was noted. We did reach out to [employer] about his pacemaker but they were unable to coordinate a rep today, patient has a follow-up scheduled to check on his pacemaker defibrillator outpatient. Follow up with your PCP and escrow secretary in the next 1-2 weeks Please continue your home medications as previously prescribed I recommend you hold your spironolactone restarting it either 10/23 or 10/24 Make sure you are getting adequate fluid intake Vital Signs/Physical Exam: Temp Pulse Resp BP Pulse Ox 97.1 F 74 17 133/72 97 10/22/23 11:22 10/22/23 11:22 10/22/23 11:22 10/22/23 11:22 10/22/23 11:22 General: Alert, In no apparent distress, Oriented x3 HEENT: Atraumatic, PERRLA, EOMI Neck: Supple, JVD not distended Respiratory: Clear to auscultation bilaterally, Normal air movement Cardiovascular: Regular rate/rhythm, Normal S1 S2 Gastrointestinal: Normal bowel sounds Musculoskeletal: No tenderness Integumentary: No rashes Neurological: Normal speech, Normal tone Laboratory Data at Discharge: WBC 7.30 thou/uL (4.3-10.9) 10/22/23 07:32 Hgb 14.4 g/dL (13.6-17.9) 10/22/23 07:32 Hct 44.0 % (39.6-49.0) 10/22/23 07:32 Plt Count 162 thou/uL (152-406) 10/22/23 07:32 PT 12.0 SECONDS (9.5-12.5) 10/21/23 03:08 INR 1.09 10/21/23 03:08 APTT 27.4 SECONDS (24.3-36.9) 10/21/23 03:08 Sodium 140 mEq/L (136-145) 10/22/23 07:32 Potassium 4.4 mEq/L (3.5-5.1) 10/22/23 07:32 BUN 17 mg/dL (7-18) 10/22/23 07:32 Creatinine 1.16 mg/dL (0.70-1.30) 10/22/23 07:32 Glucose 101 mg/dL (74-106) 10/22/23 07:32 Magnesium 2.3 mg/dL (1.6-2.4) 10/21/23 03:08 Total Bilirubin 0.7 mg/dL (0.2-1.0) 10/21/23 03:08 AST 26 U/L (15-37) 10/21/23 03:08 ALT 33 U/L (16-61) 10/21/23 03:08 Alkaline Phosphatase 99 U/L (45-117) 10/21/23 03:08 Physician Discharge Instructions: Patient was admitted for a syncopal episode. At the time of the episode he was found to be hypotensive, also had a slight ROB on admission. He was given IV fluids overnight his kidney function improved as well as his blood pressure, he has been ambulatory without any further episodes of lightheadedness/near syncope. He denies any chest pain, palpitations, shortness of breath. He was monitored on telemetry and troponins were trended which were negative, no significant arrhythmia was noted. We did reach out to [facility] about his pacemaker but they were unable to coordinate a rep today, patient has a follow-up scheduled to check on his pacemaker defibrillator outpatient. Follow up with your PCP and escrow secretary in the next 1-2 weeks Please continue your home medications as previously prescribed I recommend you hold your spironolactone restarting it either 10/23 or 10/24 Make sure you are getting adequate fluid intake Diet: AHA Activity: Ad sona Followup: AAMIR RUTLEDGE [UNKNOWN] - 1-2 Weeks Levi Duffy MD [ACTIVE - CAN ADMIT] - 1-2 Weeks Time spent managing pt's care (in minutes): 35
== END 2023-10-22 13:40 | disposition home or self-care (01) ==
LOC: ER 03:03 → ERHOLD 07:29 → 2ND 21:55
PROVIDERS: ADMIT Hospitalist; ATTEND Hospitalist
DX: I95.1 Orthostatic hypotension (principal); I25.10 Atherosclerotic heart disease of native coronary artery without angina pectoris; I50.22 Chronic systolic (congestive) heart failure; E03.9 Hypothyroidism, unspecified; N28.9 Disorder of kidney and ureter, unspecified; E78.5 Hyperlipidemia, unspecified; Z95.0 Presence of cardiac pacemaker; Z79.82 Long term (current) use of aspirin; I25.2 Old myocardial infarction
CPT/HCPCS: 93005; 87040 ×2; 85025 ×2; 81001; 80048 ×2; 36415 ×2; 86900; 83735; 86850; 85610; 86901; 80076; 83605; 85730; 84443; 84484 ×3; 84439; 83880; 70450; 71045; J1650; P9047; J7030 ×3; 96361; 96365; 99285; G0378